=== PATIENT | female | born 1940 | race Two or more races ===

== ENCOUNTER 2019-06-30 06:27 | Day surgery (SDC) | payer OTHER ==
[~2019-06-30 06:27] MED LIST: CARVEDILOL12.5 MG PO; CYMBALTA30 MG PO; FOSAMAX70 MG PO; LATANOPROST2.5 ML OP; LEVO-T50 MCG PO; METFORMIN HCL500 MG PO; NORVASC2.5 MG PO; SIMVASTATIN20 MG PO; TIMO 0.5%-DORZ 25 ML OP
== END 2019-06-30 09:45 | disposition home or self-care (01) ==
LOC: CIR.AMB 06:27
DX: M48.061 Spinal stenosis, lumbar region without neurogenic claudication (principal)

== ENCOUNTER 2019-09-29 05:22 | Day surgery (SDC) | payer OTHER | END 2019-09-29 12:30 | disposition home or self-care (01) | LOC: CIR.AMB 05:22 | DX: M99.63 Osseous and subluxation stenosis of intervertebral foramina of lumbar region (principal) ==